=== PATIENT | female | born 2000 | race Caucasian/White ===

== ENCOUNTER 2021-08-05 23:46 | Emergency (ER) | payer MEDICAID ==
[~2021-08-05] VITALS: Ht 152.4 cm; Wt 82.0 kg
[2021-08-06 01:25] LABS: CHLORIDE 112 mEq/L (98-107)
[2021-08-06 01:28] LABS: BASOPHILS % 0.9 % (0.0-2.0); EOSINOPHILS % 1.6 % (0.0-5.0); HEMATOCRIT. 35.1 % (36.0-48.0); HEMOGLOBIN. 11.4 g/dL (12.0-16.0); LYMPHOCYTES % 37.6 % (20.0-50.0); MEAN CORPUSCULAR HEMOGLOBIN 23.7 pg (28.0-32.0); MEAN CORPUSCULAR VOLUME 72.9 fL (81.0-99.0); MEAN PLATELET VOLUME 8.2 fl (7.4-10.4); NEUTROPHILS % 49.9 % (40.0-76.0); PLATELET 392 x1000/uL (130-400); RED BLOOD CELL COUNT 4.82 mill/uL (4.2-5.4); RED CELL DISTRIBUTION WIDTH 17.1 % (11.6-14.6)
[2021-08-06] MEDS ORDERED: MORPHINE SULFATE 2 MG/ML CPJ (NOT FOR IM USE) IV ONE (01:30)
[2021-08-06] MEDS ORDERED: ONDANSETRON HCL 4MG/2ML INJ IV ONE (01:30)
[2021-08-06] MEDS ORDERED: KETOROLAC 30MG/ML VIAL IV ONE (01:30)
[2021-08-06 01:37] LABS: CLARITY URINE CLEAR (CLEAR); COLOR URINE YELLOW (YELLOW); KETONES URINE NEGATIVE (NEGATIVE); LEUKOCYTE ESTERASE URINE TRACE (NEGATIVE); NITRITE URINE NEGATIVE (NEGATIVE); OCCULT BLOOD URINE 1+ (NEGATIVE); PROTEIN URINE NEGATIVE (NEGATIVE); SPECIFIC GRAVITY URINE 1.017 (1.005-1.030); UROBILINOGEN URINE 0.2 E.U./dL (0.2-1.0)
[2021-08-06 01:42] LABS: HCG SCREEN NEGATIVE
[2021-08-06] MEDS ORDERED: IOHEXOL-300 100 ML BOTTLE ONE (02:33)
[2021-08-06] MEDS ORDERED: T3 PO (08:24)
[2021-08-06] MEDS ORDERED: CEPH500C2 MT (08:24)
[2021-08-06 08:30] VITALS: BP 103/54
== END 2021-08-06 09:01 | disposition home or self-care (01) ==
LOC: ER 23:46
DX: N39.0 Urinary tract infection, site not specified (principal)
CPT/HCPCS: 36415; 74177; 76830; 76856; 80053; 81003; 83605; 84703; 85025; 96374; 96375; 99285; J1885; J2270; J2405; Q9967

== ENCOUNTER 2022-07-06 20:47 | Inpatient (IN) | payer MEDICAID, OTHER ==
[~2022-07-06] VITALS: Ht 152.4 cm; Wt 102.1 kg
[~2022-07-06 20:47] MED LIST: CEPH500C2 MT; T3 PO
[2022-07-06] MEDS ORDERED: PREN1TAB78 PO (21:43)
[2022-07-06] MEDS ORDERED: LIDOCAINE HCL 1% 20ML VIAL (Pyxis) INJ INFIL SCH ×2 (22:00→23:00)
[2022-07-06] MEDS ORDERED: NALOXONE HCL 0.4 MG/ML 1ML VIAL IM PRN ×2 (22:00→23:00)
[2022-07-06] MEDS ORDERED: MISOPROSTOL 100MCG TABLET VG PRN (22:00)
[2022-07-06] MEDS ORDERED: METHYLERGONOVINE MALEATE 0.2 MG/ML IM PRN ×2 (22:00→23:00)
[2022-07-06] MEDS ORDERED: BUTORPHANOL TARTRATE 2 MG/ML VIAL IV PRN ×2 (22:00→23:00)
[2022-07-06] MEDS: LACTATED RINGERS 1,000 ML IV SCH (22:54)
[2022-07-06] MEDS ORDERED: RHO(D) IMMUNE GLOBULIN 300 MCG/SYR IM NR (23:00)
[2022-07-06] MEDS ORDERED: OXYTOCIN 30 UNITS/500ML NS PMX 500 ML IV SCH (23:00)
[2022-07-06] MEDS ORDERED: CARBOPROST TROMETHAMINE 250 MCG/ML AMPUL IM PRN (23:00)
[2022-07-06] MEDS ORDERED: LACTATED RINGERS 1,000 ML IV SCH (23:15)
[2022-07-07 00:07] LABS: CLARITY URINE CLEAR (CLEAR); COLOR URINE YELLOW (YELLOW); KETONES URINE NEGATIVE (NEGATIVE); LEUKOCYTE ESTERASE URINE 1+ (NEGATIVE); NITRITE URINE NEGATIVE (NEGATIVE); OCCULT BLOOD URINE NEGATIVE (NEGATIVE); PH URINE 6.5 (4.5-8.0); PROTEIN URINE 3+ (NEGATIVE); SPECIFIC GRAVITY URINE 1.017 (1.005-1.030)
[2022-07-07 00:08] LABS: BASOPHILS % 0.8 % (0.0-2.0); EOSINOPHILS % 6.6 % (0.0-5.0); HEMATOCRIT. 27.7 % (36.0-48.0); HEMOGLOBIN. 8.7 g/dL (12.0-16.0); LYMPHOCYTES % 27.2 % (20.0-50.0); MEAN CORPUSCULAR HEMOGLOBIN 21.8 pg (28.0-32.0); MEAN CORPUSCULAR VOLUME 69.4 fL (81.0-99.0); NEUTROPHILS % 53.4 % (40.0-76.0); PLATELET 370 x1000/uL (130-400); RED BLOOD CELL COUNT 3.99 mill/uL (4.2-5.4); RED CELL DISTRIBUTION WIDTH 18.7 % (11.6-14.6)
[2022-07-07 00:12] LABS: CHLORIDE 106 mEq/L (98-107)
[2022-07-07 00:20] LABS: *AMPHETAMINES SCREEN URINE NEGATIVE (NEGATIVE); *BARBITURATES SCREEN URINE NEGATIVE (NEGATIVE); *BENZODIAZEPINES SCREEN URINE NEGATIVE (NEGATIVE); *COCAINE SCREEN URINE NEGATIVE (NEGATIVE); CANNABINOID URINE SCREEN NEGATIVE (NEGATIVE); METHADONE URINE SCREEN NEGATIVE (NEGATIVE); OPIATES URINE SCREEN NEGATIVE (NEGATIVE); PHENCYCLIDINE URINE SCREEN NEGATIVE (NEGATIVE)
[2022-07-07 00:21] LABS: INR 0.9; PARTIAL THROMBOPLASTIN TIME 25.2 sec (23.4-31.0); PROTHROMBIN TIME 9.4 sec (9.6-11.0)
[2022-07-07 00:43] LABS: HEPATITIS B SURFACE ANTIGEN NEGATIVE
[2022-07-07] MEDS: MISOPROSTOL 100MCG TABLET VG SCH ×2 (01:00→05:29)
[2022-07-07 02:31] LABS: PLATELET ESTIMATE NORMAL
[2022-07-07] MEDS: LACTATED RINGERS 1,000 ML IV SCH ×2 (08:01→10:11)
[2022-07-07] MEDS ORDERED: ROPIVACAINE HCL/PF EPIDURAL 200 ML EPI ONE (08:39)
[2022-07-07] MEDS: OXYTOCIN 30 UNITS/500ML NS PMX 500 ML IV SCH ×2 (12:08→13:31)
[2022-07-07] MEDS ORDERED: IBUPROFEN 800MG TABLET PO PRN (13:00)
[2022-07-07] MEDS ORDERED: ACETAMINOPHEN WITH CODEINE 300/30MG TABLET PO PRN (13:00)
[2022-07-07] MEDS ORDERED: GLYCERIN/WITCH HAZEL LEAF MEDICATED PAD TOP PRN (13:00)
[2022-07-07] MEDS ORDERED: IBUPROFEN 400MG TABLET PO PRN (13:00)
[2022-07-07] MEDS ORDERED: LANOLIN OINT 7GM TUBE TOP PRN (13:00)
[2022-07-07] MEDS ORDERED: HEMORRHOIDAL SUPP PR PRN (13:00)
[2022-07-07] MEDS ORDERED: BISACODYL 10MG SUPP PR PRN (13:00)
[2022-07-07] MEDS ORDERED: BENZOCAINE/LANOLIN/ALOE VERA SPRAY TOP PRN (13:00)
[2022-07-07] MEDS ORDERED: DIPHENHYDRAMINE 25MG CAPSULE PO PRN (13:00)
[2022-07-07] MEDS ORDERED: OXYTOCIN 30 UNITS/500ML NS PMX 500 ML IV SCH (13:00)
[2022-07-07] MEDS ORDERED: METHYLERGONOVINE MALEATE 0.2 MG/ML IM PRN (13:00)
[2022-07-07] MEDS ORDERED: NALOXONE HCL 0.4MG/ML VIAL IV PRN (13:00)
[2022-07-07 13:45] VITALS: BP 130/71
[2022-07-07 16:07] VITALS: BP 127/73
[2022-07-07] MEDS ORDERED: TETANUS, DIPHTHERIA, PERTUSSIS VAC/PF 0.5ML (>10YR OLD) IM ONE (17:30)
[2022-07-07] MEDS ORDERED: MEASLES,MUMPS&RUBELLA VACCINE 1 VIAL SUBCUT ONE (17:30)
[2022-07-07 20:00] VITALS: BP 134/71
[2022-07-07] MEDS ORDERED: DOCUSATE SODIUM 100MG CAPSULE PO SCH (21:00)
[2022-07-08 04:15] VITALS: BP 115/68
[2022-07-08 07:17] LABS: BASOPHILS % 0.7 % (0.0-2.0); EOSINOPHILS % 7.1 % (0.0-5.0); HEMATOCRIT. 25.6 % (36.0-48.0); LYMPHOCYTES % 25.4 % (20.0-50.0); MEAN CORPUSCULAR HEMOGLOBIN 21.6 pg (28.0-32.0); MEAN CORPUSCULAR VOLUME 69.5 fL (81.0-99.0); MEAN PLATELET VOLUME 8.8 fl (7.4-10.4); MONOCYTES % 8.4 % (2.0-8.0); NEUTROPHILS % 58.4 % (40.0-76.0); PLATELET 343 x1000/uL (130-400); RED BLOOD CELL COUNT 3.69 mill/uL (4.2-5.4)
[2022-07-08] MEDS ORDERED: FERROUS SULFATE 325MG TABLET PO SCH (07:30)
[2022-07-08 07:48] VITALS: BP 105/57
[2022-07-08] MEDS ORDERED: PRENATAL VIT/FE FUMARATE/FA TABLET PO SCH (09:00)
[2022-07-08] MEDS ORDERED: FERR-63 PO (10:10)
[2022-07-08] MEDS ORDERED: IBUP-2030 PO (10:10)
[2022-07-08] MEDS ORDERED: MEDROXYPROGESTERONE ACETATE 150MG/ML VIAL IM NR (11:00)
== END 2022-07-08 15:30 | disposition home or self-care (01) | DRG 560 ==
LOC: OBSVTOIN 20:47 → 8 EST LDRP 20:47 → 8EST 07-07 14:00
PROVIDERS: ADMIT Obstetrics & Gynecology; ATTEND Obstetrics & Gynecology
PROC: 10E0XZZ Delivery of Products of Conception, External Approach (ICD-10-PCS; principal; 2022-07-07)
PROC: 0HQ9XZZ Repair Perineum Skin, External Approach (ICD-10-PCS; 2022-07-07)
PROC: 3E0R3BZ Introduction of Anesthetic Agent into Spinal Canal, Percutaneous Approach (ICD-10-PCS; 2022-07-07)
PROC: 00HU33Z Insertion of Infusion Device into Spinal Canal, Percutaneous Approach (ICD-10-PCS; 2022-07-07)
DX: O36.8130 Decreased fetal movements, third trimester, not applicable or unspecified (principal); Z37.0 Single live birth; O41.03X0 Oligohydramnios, third trimester, not applicable or unspecified; O99.214 Obesity complicating childbirth; O70.0 First degree perineal laceration during delivery; Z20.822 Contact with and (suspected) exposure to COVID-19; O99.02 Anemia complicating childbirth; Z3A.39 39 weeks gestation of pregnancy
CPT/HCPCS: 36415; 76805; 76818; 80053; 80305; 81003; 84550; 85025; 85384; 86592; 86703; 86762; 86850; 86900; 87340; 87426; 90707; 90715; 99281; J0595; J1050; J2795; J7120; A4315; J2590

== ENCOUNTER 2023-02-13 21:21 | Emergency (ER) | payer OTHER ==
[~2023-02-13] VITALS: Ht 152.4 cm; Wt 97.0 kg
[~2023-02-13 21:21] MED LIST changes: -CEPH500C2 MT; +FERR-63 PO; +IBUP-2030 PO; +PREN1TAB78 PO; -T3 PO
[2023-02-13 21:37] VITALS: BP 122/58; O2SAT 99
[2023-02-13 22:50] LABS: CHLORIDE 112 mEq/L (98-107); INDEX HEMOLYSI 1 (1-3); INDEX ICTERIC 1 (1-4); INDEX LIPEMIC 1 (1-3); POTASSIUM 3.6 mEq/L (3.5-5.1); SODIUM 139 mEq/L (136-145)
[2023-02-13 22:53] LABS: ALBUMIN 3.4 g/dL (3.4-5.0); CALCIUM 8.3 mg/dL (8.5-10.1); CARBON DIOXIDE 23 mEq/L (21-32); GLUCOSE 99 mg/dL (70-105); UREA NITROGEN BLOOD 9 mg/dL (7-21)
[2023-02-13 22:56] LABS: ALANINE AMINOTRANSFERASE 41 IU/L (13-61); ASPARTATE AMINOTRANSFERASE 23 IU/L (15-37); BASOPHILS % 0.5 % (0.0-2.0); BILIRUBIN TOTAL 0.2 mg/dL (0.1-1.0); CREATININE 0.5 mg/dL (0.6-1.3); DIFFERENTIAL COMMENT 0; EOSINOPHILS % 3.5 % (0.0-5.0); HEMATOCRIT. 33.7 % (36.0-48.0); HEMOGLOBIN. 10.9 g/dL (12.0-16.0); LYMPHOCYTES % 39.8 % (20.0-50.0); MEAN CORPUSCULAR HEMOGLOBIN 23.6 pg (28.0-32.0); MEAN CORPUSCULAR HGB CONC 32.4 g/dL (31.0-37.0); MEAN CORPUSCULAR VOLUME 72.9 fL (81.0-99.0); MEAN PLATELET VOLUME 8.8 fl (7.4-10.4); MONOCYTES % 13.9 % (2.0-8.0); NEUTROPHILS % 42.3 % (40.0-76.0); PLATELET 326 x1000/uL (130-400); PROTEIN TOTAL 7.7 g/dL (6.0-8.3); RED BLOOD CELL COUNT 4.61 mill/uL (4.2-5.4); RED CELL DISTRIBUTION WIDTH 18.7 % (11.6-14.6); WHITE BLOOD COUNT 6.7 x1000/uL (4.5-11.0)
[2023-02-13 23:52] LABS: CLARITY URINE TURBID (CLEAR); COLOR URINE DARK YELLOW (YELLOW); GLUCOSE URINE NEGATIVE (NEGATIVE); KETONES URINE TRACE (NEGATIVE); LEUKOCYTE ESTERASE URINE NEGATIVE (NEGATIVE); NITRITE URINE NEGATIVE (NEGATIVE); OCCULT BLOOD URINE NEGATIVE (NEGATIVE); PH URINE 5.5 (4.5-8.0); PROTEIN URINE 3+ (NEGATIVE); SPECIFIC GRAVITY URINE 1.044 (1.005-1.030)
[2023-02-14 00:07] LABS: BACTERIA URINE 1+; RBC URINE 0-2 /hpf (0-2); SQUAMOUS EPITHELIAL CELL URINE 2+ /lpf (RARE/1+)
[2023-02-14] MEDS ORDERED: KETOROLAC 60MG/2ML VIAL IM ONE (00:15)
[2023-02-14] MEDS ORDERED: IBUP-2030 MT (01:33)
[2023-02-14] MEDS ORDERED: LEVO-65 MT (01:33)
[2023-02-14 01:56] VITALS: PULSE 74; RESP 18; TEMP 98.3
== END 2023-02-14 01:58 | disposition home or self-care (01) ==
LOC: ER 21:21
DX: R82.90 Unspecified abnormal findings in urine (principal)
CPT/HCPCS: 99285; 80053; 81003; 83690; 85025; 36415; 76705; 96372; J1885